=== PATIENT | female | born 1955 | race African-American/Black ===

== ENCOUNTER → 2017-10-06 | Day surgery (SDC) | payer OTHER ==
[~2017-10-06] MED LIST: ALENDRONATE SOD70 MG; AMLODIPINE-BEN1 EACH PO; BUPROPION HCL100 MG PO; CRESTOR10 MG PO; FENTANYL CITRATE/PF 100MCG/2 ML INJ ONE; HYDROCHLOROTHIA25 MG PO; LEVETIRACETAM500 MG PO; LIDOCAINE HCL 2% LOCAL INJ 5 ML SDV VIAL INJ ONE; MIDAZOLAM HCL 2 MG/2 ML VIAL ONE; PROPOFOL IV EMULSION 10 MG/ML 50 ML VIAL ONE
== END | disposition home or self-care (01) ==
LOC: OR 12:38
PROVIDERS: ATTEND Internal Medicine Gastroenterology
DX: R19.5 Other fecal abnormalities (principal); D12.2 Benign neoplasm of ascending colon; D12.3 Benign neoplasm of transverse colon; D12.4 Benign neoplasm of descending colon; D12.5 Benign neoplasm of sigmoid colon; D12.8 Benign neoplasm of rectum; K29.70 Gastritis, unspecified, without bleeding; K29.80 Duodenitis without bleeding; K21.0 Gastro-esophageal reflux disease with esophagitis; K57.30 Diverticulosis of large intestine without perforation or abscess without bleeding; K44.9 Diaphragmatic hernia without obstruction or gangrene; K64.8 Other hemorrhoids; M81.0 Age-related osteoporosis without current pathological fracture; I10 Essential (primary) hypertension; E78.5 Hyperlipidemia, unspecified; J44.9 Chronic obstructive pulmonary disease, unspecified; R63.4 Abnormal weight loss; G47.33 Obstructive sleep apnea (adult) (pediatric); I69.354 Hemiplegia and hemiparesis following cerebral infarction affecting left non-dominant side; F41.9 Anxiety disorder, unspecified; Z01.810 Encounter for preprocedural cardiovascular examination
CPT/HCPCS: 43239; 45380; 45381; 45384; 45385; 93005; J2001; J2250; 44391